=== PATIENT | female | born 1980 | race Caucasian/White ===

== ENCOUNTER 2021-07-08 01:36 | Outpatient (CLI) | payer OTHER ==
[~2021-07-08 01:36] MED LIST: ALBU8.5H8 IH; ALPR1TAB7 PO; ARIP15TA27 PO; BECL8.7A6 IH; DOXY150T5 PO; OMEP20 PO
[2021-07-08 02:00] VITALS: BP 146/89
[2021-07-08 02:30] VITALS: BP 146/89
[2021-07-08] MEDS ORDERED: QUEtiapine FUMARATE 25 MG TABLET PO ONE (02:45)
[2021-07-08] MEDS ORDERED: QUET25TA PO (03:30)
== END 2021-07-08 03:00 | disposition home or self-care (01) ==
LOC: CSU 01:36
PROVIDERS: ATTEND Psychiatry & Neurology Psychiatry
DX: F19.14 Other psychoactive substance abuse with psychoactive substance-induced mood disorder (principal); F15.20 Other stimulant dependence, uncomplicated
CPT/HCPCS: 90792; Z7610